=== PATIENT | male | born 1995 | race Caucasian/White ===

== ENCOUNTER → 2021-06-26 | Outpatient (REF) ==
--- NOTE | 2021-06-26 15:41 | Diagnostic Imaging Report ---
INDICATION: RIGHT ELBOW PAIN-INJURY TECHNIQUE: 3 views of the right elbow CORRELATION STUDY: None FINDINGS: There is normal alignment of the osseous structures of the elbow. No acute fracture. No abnormal joint effusion. IMPRESSION: 1. Negative for acute bony abnormality of the right elbow. Dictated by: Dictated on workstation # [id number]
== END ==
LOC: OCC 15:18
PROVIDERS: ATTEND Family Medicine
DX: M25.521 Pain in right elbow (principal)
CPT/HCPCS: 73080